=== PATIENT | male | born 1945 | race Caucasian/White ===

== ENCOUNTER 2025-09-24 12:44 | Emergency (ER) | payer MEDICARE, OTHER, SELFPAY ==
[2025-09-24 12:49] VITALS: BP 111/65; BMI 27.8
[2025-09-24 13:00] VITALS: BP 111/55
[2025-09-24 13:10] LABS: Hematocrit 29.7 % (39.0-52.0); Hemoglobin 10.2 g/dL (13.0-18.0); Mean Corp Hgb Conc. 34.3 g/dL (33.0-37.0); Mean Corpuscular Volume 95.8 fL (80.0-94.0); Platelet Count 287 10^3/uL (130-400); Red Cell Dist. Width 12.4 % (11.5-14.5)
--- NOTE | 2025-09-24 13:13 | ED.GENMED ---
History of Present Illness
General
Chief Complaint: Dizziness
Source: patient
Exam Limitations: none
Time Seen by Provider: 09/24/25 13:00
History of Present Illness
History of Present Illness:
80-year-old male describing a syncopal episode while exercising. Patient was weights twice a week. He was doing his normal routine. Did not benchpress. Went over to do leg exercises. Started feeling lightheaded. Became diaphoretic and clammy
and had a brief syncopal episode. No trauma. No preceding chest pain shortness of breath pleuritic pain or unusual headache. Currently feels fine.
Past History
Past History
ED Past Medical History: HTN and Hypercholesterolemia
Review of Systems
Review of Systems
All Other Systems: Not applicable
Respiratory: Denies trouble breathing
Cardiac: Denies chest pain
Phy Exam
Physical Exam
Physical Exam:
GENERAL: Alert and oriented in no apparent distress
EYE: Orbits normal.
NECK: Supple
ENT: Pharynx without erythema
CARDIAC: Regular rate and rhythm without any obvious murmurs.
LUNGS: Clear breath sounds,normal
ABDOMEN: Soft, without focal tenderness or distention
NEUROLOGICAL: Alert and oriented , grossly non-focal. Speech normal. Cranial nerves II through XII intact.
SKIN: Warm and dry, no rash or lesion, no discoloration, skin intact.
MUSCULOSKELETAL: No edema,no deformity.Good color
PSYCH: Normal and appropriate interaction.
Course
Orders/Labs/Results
Orders:
Orders
09/24/25 12:46
Electrocardiogram (*1) Urgent
Reason for Study: Syncope
09/24/25 12:47
EKG- Treatment ONCE
09/24/25 13:01
CBC/No Diff [Complete Blood Count/No Diff] Urgent
Comprehensive Metabolic Panel Urgent
09/24/25 13:13
0.9% Sodium Chloride 500 ml [Nss] 500 ml IV BOLUS
09/24/25 13:22
D-Dimer Urgent
Troponin I Urgent
09/24/25 14:50
CT Chest PE Study Urgent
Comment:
Reason For Exam: Syncope/positive dimer
US Periph Venous LOWER Ext Manolo Urgent
Comment:
Reason For Exam: Syncope/positive dimer
09/24/25 16:17
EKG [Electrocardiogram (*1)] Urgent
Reason for Study: Other
Other Reason for Exam: syncope
EKG- Treatment ONCE
09/24/25 17:02
Troponin I Urgent
Abnormal Lab Results
09/24/25 09/24/25
13:01 13:22
RBC 3.10 L 10^6/uL
(4.70-6.10)
Hgb 10.2 L g/dL
(13.0-18.0)
Hct 29.7 L %
(39.0-52.0)
MCV 95.8 H fL
(80.0-94.0)
MCH 32.9 H pg
(27.0-31.0)
D-Dimer 2.34 H ug/mlFEU
(0.00-0.50)
BUN 26 H mg/dl
(9-20)
Glucose 129 H mg/dl
(70-99)
Total Protein 5.8 L g/dl
(6.3-8.2)
Albumin 3.4 L g/dl
(3.5-5.0)
09/24/25 13:01
09/24/25 13:01
Vital Signs
Initial and Last Documented VS:
Initial Vital Signs
Temp Pulse Resp BP Pulse Ox
97.6 F 68 13 111/65 96
09/24/25 12:49 09/24/25 12:49 09/24/25 12:49 09/24/25 12:49 09/24/25 12:49
Last Documented Vital Signs
Temp Pulse Resp BP Pulse Ox
97.6 F 51 13 153/72 99
09/24/25 12:49 09/24/25 18:45 09/24/25 18:45 09/24/25 18:00 09/24/25 18:45
MDM/Problems Addressed
Differential Diagnosis Includes:
Patient describing vasovagal syncope. Had prodromal symptoms. No chest pain no shortness of breath. Currently asymptomatic. Highly doubt ischemic heart disease. Will check troponin. EKG with nonspecific changes and a right bundle branch block.
Monitoring for observation. Patient was lifting weights but has no shearing pain back pain. Very low suspicion for dissection or PE. We will do a D-dimer as a screen.
*Radiology
Radiology exam reviewed: radiology read reviewed (Coronary artery complications. No PE. Mild cardiomegaly. Hiatal hernia. Incidental gallstones. Negative leg ultrasound)
*Pulse Oximetry
SaO2: 96
Oxygen Mode of Delivery: Room air
Patient hypoxic: no
*EKG
Interpreted by ED Provider?: Yes
Interpretation: abnormal
Comparison EKG: no comparison EKG present
Heart Rate: 54
Rate: bradycardiac
Rhythm: sinus
[place]: normal axis
Interval: normal interval
QRS Pattern: right bundle branch block
Ischemia: non-specific ST changes
*Lead C Developer Interpretation
Rate: normal
Interpretation: normal
Heart Rate: 64
Rhythm: sinus
*Critical Care Note
Total Time (30-74mins, 75-104mins- exclusive of procedures): 35
Update Note
Update Note:
1455... Patient has remained stable and asymptomatic. Nonetheless has a positive dimer. Will get a CT of the chest and leg ultrasounds. Patient updated.
1900.... Patient has remained stable. Copy of CT report given to patient. He states he feels great. He never had chest pain or shortness of breath. Only describing this vasovagal like syncopal episode. However with nonspecific EKG changes,
coronary calcification patient does warrant cardiac follow-up. There was a minimal bump in his troponin but still within the normal limits and again never having chest pain shortness of breath only having a syncopal episode I feel this is stable
for discharge. Patient feels great at this time. He is also describing no melena or black or tarry stools.
ED Attending Note
-
Portions of this chart may have been created with voice recognition software.� Occasional wrong word or��sound alike� substitutions may have occurred due to the inherent limitations of voice recognition software.
Discharge Plan
Departure
Patient Disposition: Home (Routine Discharge)
Date of Disposition: 09/24/25
Time of Disposition: 18:54
Patient with high blood pressure during this ER visit?: Yes
Discharge Problem:
Syncope, Anemia, Incidental cholelithiasis, Coronary artery calcification
Instructions: Syncope (fainting) (DC), Chest Pain CBC Follow Up, BLOOD PRESSURE
Referrals:
Andrea Monterroso, [Family Provider, Family Practice] - Follow up in 2-3 days
Activity Restrictions/Additional Instructions:
The cardiac office should call you for close follow-up
Follow-up your anemia with your primary physician
Interventions
Interventions:
*General Assessment Last Done: 09/24/25 12:49
*Neglect/Abuse Screening Last Done: 09/24/25 12:49
*ED COVID-19 Vaccine History Last Done: 09/24/25 12:49
*ED Influenza Vaccine History Last Done: 09/24/25 12:49
[facility] Risk Assessment Tool Last Done: 09/24/25 19:08
*Risk Screen - Suicide (C-SSRS) Last Done: 09/24/25 12:49
*Nursing Disposition Last Done: 09/24/25 19:08
ED- Neurological Assessment Last Done: 09/24/25 14:47
ED- Cardiac Assessment Last Done: 09/24/25 14:47
Discharge Date and Time
Discharge Date/Time: 09/24/25 19:09
Print Language: PASHTO
[2025-09-24 13:23] LABS: ALT (SGPT) 14 U/L (0-50); AST (SGOT) 20 U/L (17-59); Albumin 3.4 g/dl (3.5-5.0); Alkaline Phosphatase 64 U/L (38-126); Blood Urea Nitrogen 26 mg/dl (9-20); Calcium 8.6 mg/dl (8.4-10.2); Carbon Dioxide 23 mmol/L (22-30); Chloride 106 mmol/L (98-107); Estimated Creatinine Clearance 52 ml/min; Glucose 129 mg/dl (70-99); Potassium 4.0 mmol/L (3.5-5.1); Sodium 135 mmol/L (135-145); Total Protein 5.8 g/dl (6.3-8.2); eGFR > 60.00
[2025-09-24] MEDS: NSS 500 IV (13:23)
[2025-09-24 14:28] LABS: D-Dimer 2.34 ug/mlFEU (0.00-0.50)
[2025-09-24 14:36] VITALS: BP 115/64
[2025-09-24 14:38] LABS: Troponin I 0.020 ng/ml
[2025-09-24 15:00] VITALS: BP 91/72
[2025-09-24 17:00] VITALS: BP 136/70
[2025-09-24 17:48] LABS: Troponin I 0.028 ng/ml
[2025-09-24 18:00] VITALS: BP 153/72
== END 2025-09-24 19:09 | disposition home or self-care (01) ==
LOC: EMR 12:44
PROVIDERS: Student in an Organized Health Care Education/Training Program; EMERGENCY PHYSICIAN Emergency Medicine; FAMILY PHYSICIAN Family Medicine
DX: R55 Syncope and collapse (principal); D64.9 Anemia, unspecified; K80.20 Calculus of gallbladder without cholecystitis without obstruction; I25.10 Atherosclerotic heart disease of native coronary artery without angina pectoris; E78.00 Pure hypercholesterolemia, unspecified; R79.1 Abnormal coagulation profile; I10 Essential (primary) hypertension; I45.10 Unspecified right bundle-branch block
CPT/HCPCS: 96360; 96361; 99284; 71275; 80053; 84484; 85027; 85379; 93005; 93970; Q9967